=== PATIENT | female | born 1970 | race Caucasian/White ===

== ENCOUNTER 2017-06-03 17:03 | Emergency (ER) | payer OTHER ==
[2017-06-03 17:09] VITALS: BP 151/77; PULSE 70; TEMP 98.4; BMI 22.4
--- NOTE | 2017-06-03 17:10 | PDOC ---
Rapid Medical Evaluation Chief Complaint: Rash Time Seen by Provider: 06/03/17 17:06 Medical Evaluation: Allergies Allergy/AdvReac Type Severity Reaction Status Date / Time No Known Drug Allergies Allergy Verified 06/03/17 17:04 nuts Allergy Difficulty Uncoded 06/03/17 17:04 Breathing 06/03/17 17:09 Pt presents to the ED: right sided rash, one dose of valtrex given today Pt on brief exam: noted newly erupting vesicles to right torso and neck Pt ordered for: none Pt to proceed to the ED Discharge Disposition - Diagnosis Shingles - Referrals - Patient Instructions - Post Discharge Activity
--- NOTE | 2017-06-03 17:59 | PDOC ---
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 Also reports being under an inordinate amount of stress personally and professionally. States had onset of vesicular lesions to right chest wall approximately 4 days ago and noted Lesions to the right side of her sternum today with some numbness and tingling to her face. Was concerned about potential spread 2 different dermatomes and facial lesions. Denies fever, earache or sore throat pain. Denies any cough shortness of breath, denies any significant headache although feels tired. Was prescribed 500 mg tablet of Valtrex and has started one dose. Timing/Duration: reports: changing over time, getting worse Severity: Yes: mild, moderate Location: reports: face, torso Respiratory Risk Factors: reports: exposure to illness Associated Symptoms: reports: blisters, change in skin texture, flushing Past History - Travel Traveled outside of the country in the last 30 days: No Close contact w/someone who was outside of country & ill: No - Past Medical History Allergies/Adverse Reactions: Allergies Allergy/AdvReac Type Severity Reaction Status Date / Time No Known Drug Allergies Allergy Verified 06/03/17 17:04 nuts Allergy Difficulty Uncoded 06/03/17 17:04 Breathing Home Medications: Ambulatory Orders Oxycodone HCl/Acetaminophen [Percocet 5-325 mg Tablet -] 1 - 2 tab PO Q4H PRN # 14 tablet MDD pain 06/03/17 Valacyclovir HCl [Valtrex] 1,000 mg PO TID #21 tablet 06/03/17 Asthma: Yes COPD: No - Suicide/Smoking/Psychosocial Hx Smoking Status: No Smoking History: Never smoked Have you smoked in the past 12 months: No Number of Cigarettes Smoked Daily: 0 If you are a former smoker, when did you quit?: 2011 Information on smoking cessation initiated: No Hx Alcohol Use: No Drug/Substance Use Hx: No Substance Use Type: Alcohol Review of Systems - Review of Systems Able to Perform ROS?: Yes Is the patient limited Hebrew proficient: Yes Constitutional: Yes: Symptoms Reported, See HPI, Chills, Loss of Appetite, Malaise. No: Fever HEENTM: Yes: Symptoms Reported, Other Respiratory: No: Symptoms reported ABD/GI: No: Symptoms Reported Integumentary: Yes: Symptoms Reported, See HPI, Lesions All Other Systems: Reviewed and Negative *Physical Exam - Vital Signs Last Vital Signs Temp Pulse Resp BP Pulse Ox 98.4 F 70 18 151/77 100 06/03/17 17:05 06/03/17 17:05 06/03/17 17:05 06/03/17 17:05 06/03/17 17:05 - Physical Exam General Appearance: Yes: Nourished, Appropriately Dressed, Apparent Distress, Mild Distress, Moderate Distress HEENT: positive: TISHA, Normal ENT Inspection, TMs Normal, Pharynx Normal, Other (no lesions, rashes, or color changes to face, no neurologic face changes or lag ). negative: Nasal Congestion, Rhinorrhea Neck: positive: Supple Respiratory/Chest: positive: Chest Tender, Lungs Clear, Normal Breath Sounds Cardiovascular: positive: Regular Rate Musculoskeletal: negative: Vertebral Tenderness Extremity: positive: Normal Capillary Refill, Normal Inspection, Tender. negative: Normal Range of Motion Integumentary: positive: Normal Color, Dry, Warm, Other (he shouldn't with multiple erythematous-based lesions with some vesicular lesions crowns grouped in the right thorax midaxillary line approximately T3,4 dermatome, ) Neurologic: positive: cross enterprise integrator II-XII NML intact, Fully Oriented, Alert, Normal Mood/ Affect, Normal Response, Motor Strength 5/5 Progress Note - Progress Note Progress Note: Probable shingles, will increase to appropriate dose of valacyclovir 1 g 3 times a day for 1 week, provided #14 Percocet tablets for pain relief. And encouraged to rest, and follow up as needed. Understands need for ophthalmology evaluation if eruption occurs to face and follow-up with PMD for worsened disease, fevers or other increasing viral syndrome. *DC/Admit/Observation/Transfer Diagnosis at time of Disposition: facial tenderness Shingles Qualifiers: Herpes zoster complications: without complications Qualified Code(s): B02.9 - Zoster without complications - Discharge Dispostion Disposition: HOME Condition at time of disposition: Stable Admit: No - Prescriptions Prescriptions: Oxycodone HCl/Acetaminophen [Percocet 5-325 mg Tablet -] 1 - 2 tab PO Q4H PRN # 14 tablet MDD pain PRN Reason: Pain Valacyclovir HCl [Valtrex] 1,000 mg PO TID #21 tablet - Referrals Referrals: Eileen Dunn [Primary Care Provider] - - Patient Instructions Printed Discharge Instructions: DI for Shingles Additional Instructions: Rest, keep cool and dry- avoid strenuous activity or hot /humid environments Less hot showers, no abrasive soaps May use heavy creams like Eucerin or Cetaphil to keep skin moist May apply Aveeno, calamine lotion, [id number] hydrocortisone creams as needed for symptoms May use Benadryl at night for antihistamine, Zyrtec/ Guillermina or Claritin for daytime antihistamine use to help with itching Valtrex 1 g tablet 3 times a day for one week Percocet 1/2-1 tablet every 6 hours as needed for severe pain Ibuprofen for mild to moderate pain Followup with PMD in one week if no resolution 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
== END 2017-06-03 18:22 | disposition home or self-care (01) ==
LOC: JERFT 17:03
DX: B02.9 Zoster without complications (principal)
CPT/HCPCS: 99281-25

== ENCOUNTER 2017-07-27 09:59 | Emergency (ER) | payer OTHER ==
[2017-07-27 10:06] VITALS: BP 109/75; PULSE 71; TEMP 98.5; BMI 22.8
--- NOTE | 2017-07-27 10:26 | PDOC ---
History of Present Illness - General Chief Complaint: Rash Stated Complaint: EMPLOYEE, SHINGLES Time Seen by Provider: 07/27/17 10:21 History Source: Patient Exam Limitations: No Limitations - History of Present Illness Initial Comments: 07/27/17 10:22 Into emergency department for evaluation of acute onset of itching mildly tender lesions to her right neck. Was same affected side 2 months ago where she had a severe outbreak of shingles. Patient concerned as feels is the same type of prodromal syndrome that she had before her shingles outbreak. Complaints of severe fatigue, right sided headache pain, and "funny feeling in my skin" to her right neck Timing/Duration: reports: just prior to arrival, getting worse Location: reports: face Respiratory Risk Factors: reports: no cause identified Associated Symptoms: reports: denies symptoms, change in skin texture, rash. denies: swelling/mass/lumps Past History - Travel Traveled outside of the country in the last 30 days: No Close contact w/someone who was outside of country & ill: No - Past Medical History Allergies/Adverse Reactions: Allergies Allergy/AdvReac Type Severity Reaction Status Date / Time No Known Drug Allergies Allergy Verified 07/27/17 10:03 nuts Allergy Difficulty Uncoded 07/27/17 10:03 Breathing Home Medications: Ambulatory Orders Valacyclovir HCl [Valtrex] 1,000 mg PO TID #21 tablet 07/27/17 Asthma: Yes COPD: No - Suicide/Smoking/Psychosocial Hx Smoking Status: No Smoking History: Former smoker Have you smoked in the past 12 months: No Number of Cigarettes Smoked Daily: 0 If you are a former smoker, when did you quit?: 2011 Information on smoking cessation initiated: No Hx Alcohol Use: No Drug/Substance Use Hx: No Substance Use Type: Alcohol Review of Systems - Review of Systems Able to Perform ROS?: Yes Is the patient limited Vincentian proficient: Yes Constitutional: Yes: Symptoms Reported, See HPI, Loss of Appetite, Malaise. No : Chills, Fever HEENTM: Yes: Symptoms Reported, See HPI Integumentary: Yes: Symptoms Reported, See HPI, Dryness, Pruritus, Rash All Other Systems: Reviewed and Negative *Physical Exam - Vital Signs Last Vital Signs Temp Pulse Resp BP Pulse Ox 98.5 F 71 19 109/75 99 07/27/17 10:03 07/27/17 10:03 07/27/17 10:03 07/27/17 10:03 07/27/17 10:03 - Physical Exam General Appearance: Yes: Nourished, Appropriately Dressed. No: Apparent Distress HEENT: positive: TISHA, Normal ENT Inspection, TMs Normal, Pharynx Normal Neck: positive: Supple, Other (fine macular rash noted to the right side of neck , mildly excoriated. No vesicular type lesions, no grouped lesions, does not have appearance of shingles today). negative: Tender, Lymphadenopathy (R), Lymphadenopathy (L) Respiratory/Chest: positive: Lungs Clear, Normal Breath Sounds Gastrointestinal/Abdominal: positive: Soft Musculoskeletal: positive: Normal Inspection Extremity: positive: Normal Capillary Refill Integumentary: positive: Normal Color, Dry, Pale, Other Neurologic: positive: leaf tier II-XII NML intact, Fully Oriented, Alert, Normal Mood/ Affect, Normal Response, Motor Strength 5/5 Progress Note - Progress Note Progress Note: Rash to right neck, possible prodromal syndrome before shingles outbreak. Patient has significant history of same same side but not dermatome at [facility]. We will give prophylactic Valtrex prescription for treatment if vesicular lesions erupt otherwise treat conservatively and follow-up as needed *DC/Admit/Observation/Transfer Diagnosis at time of Disposition: Rash and nonspecific skin eruption - Discharge Dispostion Disposition: HOME Condition at time of disposition: Stable Admit: No - Prescriptions Prescriptions: Valacyclovir HCl [Valtrex] 1,000 mg PO TID #21 tablet - Referrals Referrals: Eileen Dunn [Primary Care Provider] - - Patient Instructions Printed Discharge Instructions: DI for Rash Additional Instructions: Rest, keep cool and dry- avoid strenuous activity or hot /humid environments Less hot showers, no abrasive soaps May use heavy creams like Eucerin or Cetaphil to keep skin moist May apply Aveeno, calamine lotion, [id number] hydrocortisone creams as needed for symptoms May use Benadryl at night for antihistamine, Zyrtec/ Guillermina or Claritin for daytime antihistamine use to help with itching May use mgag-emi-awajpew hydrocortisone cream on all areas except face Try to identify cause for rash and avoid exposures Followup with PMD in one week if no resolution Make appointment with flooring machine operator for 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
== END 2017-07-27 10:53 | disposition home or self-care (01) ==
LOC: JERFT 09:59
DX: R21 Rash and other nonspecific skin eruption (principal)
CPT/HCPCS: 99281-25

== ENCOUNTER 2019-12-13 13:10 | Emergency (ER) | payer OTHER ==
[2019-12-13 13:13] VITALS: BP 113/71; PULSE 60; TEMP 97.4; BMI 26.6
[2019-12-13] MEDS ORDERED: IBUPROFEN 600 MG TABLET (FP) PO ONE (13:41)
--- NOTE | 2019-12-13 13:41 | PDOC ---
History of Present Illness - General Chief Complaint: Injury Stated Complaint: WRIST INJURY Time Seen by Provider: 12/13/19 13:22 - History of Present Illness Initial Comments: 12/13/19 13:39 48-year-old [id number] female without comorbidities presents for evaluation of right wrist pain. 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 She points to the radial aspect of her right wrist as the area of her discomfort. Past History - Medical History Allergies/Adverse Reactions: Allergies Allergy/AdvReac Type Severity Reaction Status Date / Time No Known Drug Allergies Allergy Verified 12/13/19 13:25 nuts Allergy Difficulty Uncoded 12/13/19 13:25 Breathing Home Medications: Ambulatory Orders Valacyclovir HCl [Valtrex] 1,000 mg PO TID #21 tablet 07/27/17 Asthma: Yes COPD: No - Psycho-Social/Smoking History Smoking Status: No Smoking History: Never smoked Have you smoked in the past 12 months: No Number of Cigarettes Smoked Daily: 0 If you are a former smoker, when did you quit?: 2011 Information on smoking cessation initiated: No - Substance Abuse Hx (Audit-C & DAST Scrn) How often the patient has a drink containing alcohol: Never Score: In Men: 4 or > Positive; In Women: 3 or > Positive: 0 Screen Result (Pos requires Nsg. Audit-10AR): Negative In the last yr the pt used illegal drug/Rx for NonMed reason: No Score: Yes response is considered Positive: 0 Screen Result (Positive result requires Nsg. DAST-10): Negative Review of Systems - Review of Systems Musculoskeletal: Yes: Joint Pain *Physical Exam - Vital Signs Last Vital Signs Temp Pulse Resp BP Pulse Ox 97.4 F L 60 18 113/71 100 12/13/19 13:11 12/13/19 13:11 12/13/19 13:11 12/13/19 13:11 12/13/19 13:11 - Physical Exam 12/13/19 13:39 Right wrist skin color and temperature normal range of motion is full with pain at terminal flexion and extension supination and pronation. No tenderness about the TFCC ulnar styloid radial styloid DRUJ mild tenderness over the scaphoid in the area of the scapholunate joint. No palpable clunk. No gross sensorimotor deficits full range of motion of the elbow and shoulder neurovascular intact no gross sensorimotor deficits. ED Treatment Course - RADIOLOGY Radiology Studies Ordered: Category Date Time Status WRIST- RIGHT [RAD] Stat Radiology 12/13/19 13:23 Taken Medical Decision Making - Medical Decision Making 12/13/19 13:40 Most likely scapholunate ligament sprain. No fracture trauma or destructive process on radiograph. Nonweightbearing cock-up wrist splint course of anti- inflammatories was discussed. Follow-up with orthopedics. Note for light duty given. I have reviewed the pathophysiology with the patient. They are in agreement with the treatment plan all questions were answered to their satisfaction. Understanding for follow-up without fail was also conveyed to the patient. Again they are in agreement. Discharge - Discharge Information Problems reviewed: Yes Clinical Impression/Diagnosis: Right wrist sprain Condition: Stable Disposition: HOME - Admission No - Follow up/Referral Referrals: Jorge Moore DO [Staff Physician] - - Patient Discharge Instructions Additional Instructions: Return to the emergency room for worsening symptoms. Please start a short course of anti-inflammatories Motrin 400 mg 6 hours apart for the next week discontinue the medication if it bothers her stomach. Please wear the wrist splint at all times except for hygiene. You may sleep in it. Return to the emergency room for worsening symptoms and without fail follow-up with orthopedic surgery in 2 to 3 days for further evaluation and treatment options. - Post Discharge Activity Work/Back to School Note: Back to Work
== END 2019-12-13 13:53 | disposition home or self-care (01) ==
LOC: JERFT 13:10
DX: S63.501A Unspecified sprain of right wrist, initial encounter (principal); X50.0XXA Overexertion from strenuous movement or load, initial encounter
CPT/HCPCS: 73110-TC-RT-FY; 99283-25